=== PATIENT | male | born 1950 | race Caucasian/White ===

== ENCOUNTER → 2023-08-15 | Outpatient (CLI) | payer OTHER ==
--- NOTE | 2023-08-15 11:02 | US ---
EXAMINATION TYPE: US Aorta Screening DATE OF EXAM: 08/15/2023 COMPARISON: NONE CLINICAL INDICATION: Male, 73 years old with history of Z72.0 TOBACCO USE; screening TECHNIQUE: Multiple sonographic images of the abdominal aorta are obtained. FINDINGS: EXAM MEASUREMENTS: Abdominal Aorta: Proximal: Obscured by bowel gas. Mid: 2.6 x 2.2 cm Distal: 2.3 x 1.9 cm Bifurcation: Right Iliac: 1.0 x 1.3 cm Left Iliac: 1.1 x 1.2 cm [employer] NURSE NOTES: IMPRESSION: Approximately obscured by bowel gas. There is mild ectasia of the mid aorta measures a maximal diamet er of 2.6 cm. No diagnostic evidence of aortic aneurysm.
--- NOTE | 2023-08-15 11:03 | US ---
EXAMINATION TYPE: US liver DATE OF EXAM: 08/15/2023 COMPARISON: NONE CLINICAL INDICATION: Male, 73 years old with history of K73.9 CHR HEPATITIS; Hep c TECHNIQUE: Multiple sonographic images of the right upper quadrant are obtained. FINDINGS: EXAM MEASUREMENTS: Liver Length: 16.2 cm Gallbladder Wall: .3 cm CBD: .3 cm Right Kidney: 10.2 x 4.1 x 4.2 cm CHERRY SORTER NOTES: Pancreas: Obscured by bowel gas Liver: Increased attenuation Gallbladder: Multiple stones seen Evidence for sonographic Palmer's sign: no CBD: wnl Right Kidney: No hydronephrosis or masses seen IMPRESSION: 1. Nonspecific pattern to the liver can be seen with underlying hepatocellular disease or hepatic nicolle atosis. 2. Cholelithiasis with no ultrasound evidence of cholecystitis.
== END | disposition home or self-care (01) ==
LOC: RADUSWWP 10:21
PROVIDERS: ATTEND Family Medicine
DX: Z13.6 Encounter for screening for cardiovascular disorders (principal); K80.20 Calculus of gallbladder without cholecystitis without obstruction; K76.89 Other specified diseases of liver; I77.811 Abdominal aortic ectasia; K73.9 Chronic hepatitis, unspecified; Z72.0 Tobacco use
CPT/HCPCS: 76705; 76706